=== PATIENT | male | born 1965 | race Two or more races ===

== ENCOUNTER 2021-04-16 16:22 | Inpatient (IN) | payer BC ==
[~2021-04-16] VITALS: Ht 162.6 cm; Wt 72.0 kg
[2021-04-16] MEDS ORDERED: aspirin 325mg tablet PO ONE (17:35)
[2021-04-16 18:10] LABS: HEMATOCRIT 43.4 % (42.0-52.0); HEMOGLOBIN 14.1 g/dl (14.0-17.9); LYMPHOCYTES % (AUTO) 30.7 % (21-51); MEAN CORPUSCULAR HEMOGLOBIN 24.3 PG (27.0-31.0); MEAN CORPUSCULAR HGB CONC 32.5 g/dL (33.0-36.5); MEAN CORPUSCULAR VOLUME 74.7 FL (78-98); MEAN PLATELET VOLUME 8.7 FL (7.4-10.4); MONOCYTES % (AUTO) 12.7 % (2-12); NEUTROPHILS % (AUTO) 49.1 % (42-75); PLATELET COUNT 224 X10'3 (140-440); RED BLOOD COUNT 5.81 X10'6 (4.70-6.10); RED CELL DISTRIBUTION WIDTH 13.7 % (11.5-14.5); WHITE BLOOD COUNT 8.3 X10'3 (4.5-11.0)
[2021-04-16 18:11] LABS: BASOPHILS # (AUTO) 0.1 X10'3 (0-0.2); BASOPHILS % (AUTO) 1.2 % (0-1); EOSINOPHILS # (AUTO) 0.5 X10'3 (0-0.9); EOSINOPHILS % (AUTO) 6.3 % (0-6); LYMPHOCYTES # (AUTO) 2.5 X10'3 (1.1-4.8); MONOCYTES # (AUTO) 1.1 X10'3 (0-0.9); NEUTROPHILS # (AUTO) 4.1 X10'3 (1.8-7.7)
[2021-04-16 18:13] LABS: ALANINE AMINOTRANSFERASE 65 U/L (12-78); ALBUMIN 4.1 G/DL (3.4-5.0); ALKALINE PHOSPHATASE 76 IU/L (46-116); ANION GAP 8 (8-16); ASPARTATE AMINO TRANSFERASE 23 U/L (10-37); BILIRUBIN,TOTAL 0.6 MG/DL (0.1-1.0); BLOOD UREA NITROGEN 12 MG/DL (7-18); BUN/CREATININE RATIO 11.2 (5.4-32.0); CALCIUM 8.7 MG/DL (8.5-10.1); CHLORIDE 106 MMOL/L (99-107); CREATININE 1.07 MG/DL (0.60-1.10); GLUCOSE 103 MG/DL (70-104); POTASSIUM 3.6 MMOL/L (3.5-5.1); SODIUM 143 MMOL/L (135-145); TOTAL PROTEIN 8.2 G/DL (6.4-8.2); eGFR 72 ML/MIN
[2021-04-16] MEDS ORDERED: LISI-790 PO (19:00)
[2021-04-16] MEDS ORDERED: CHLO25TA10 PO (19:00)
[2021-04-16] MEDS ORDERED: ATOR10TA70 PO (19:00)
[2021-04-16 20:31] LABS: CLARITY,URINE CLEAR (Clear); COLOR,URINE YELLOW (Yellow); GLUCOSE, URINE NEGATIVE (Neg); KETONES,URINE NEGATIVE (Neg); LEUKOCYTE ESTERASE ,URINE NEGATIVE (Neg); NITRITES, URINE NEGATIVE (Neg); OCCULT BLOOD,URINE NEGATIVE (Neg); PROTEIN,URINE NEGATIVE (Neg); UROBILINOGEN,URINE 0.2 E.U/dL (0.2-1.0)
[2021-04-16 20:33] LABS: UA COLLECTION TYPE CLN CATCH MIDSTREAM
[2021-04-16 20:50] LABS: URINE AMPHETAMINE SCREEN NEGATIVE (Neg); URINE BARBITUATE SCREEN NEGATIVE (Neg); URINE BENZODIAZEPINES SCREEN NEGATIVE (Neg); URINE CANNABINOID SCREEN NEGATIVE (Neg); URINE COCAINE SCREEN NEGATIVE (Neg); URINE METHADONE SCREEN NEGATIVE (Neg); URINE OPIATE SCREEN NEGATIVE (Neg); URINE PHENCYCLIDINE SCREEN NEGATIVE (Neg)
[2021-04-16] MEDS ORDERED: bisacodyl 10mg suppository rectal RC PRN (20:55)
[2021-04-16] MEDS ORDERED: HYDROcodone/acetaminophen 5mg/325mg tablet PO PRN (20:55)
[2021-04-16] MEDS ORDERED: HYDROcodone/acetaminophen 10/325mg tab PO PRN (20:55)
[2021-04-16] MEDS ORDERED: acetaminophen 650mg rectal suppository RC PRN (20:55)
[2021-04-16] MEDS ORDERED: acetaminophen 325mg tablet PO PRN ×2 (20:55)
[2021-04-16] MEDS ORDERED: magnesium hydroxide 30ml (MOM) UD suspension PO PRN (20:55)
[2021-04-16] MEDS ORDERED: diphenhydrAMINE 25mg capsule PO PRN (20:55)
[2021-04-16] MEDS ORDERED: ondansetron/PF 4mg/2ml inj IV PRN (20:55)
[2021-04-16] MEDS ORDERED: ondansetron 4mg rapidly disintigrating tab PO PRN (20:55)
[2021-04-16] MEDS ORDERED: normal saline 1000ml 1,000 ML IV SCH (20:55)
[2021-04-16] MEDS ORDERED: morphine 2 MG/ML inj. syringe IV PRN ×2 (20:55)
[2021-04-16] MEDS ORDERED: diphenhydrAMINE 50 mg/ml inj IV PRN (20:55)
[2021-04-16] MEDS ORDERED: mag hydrox/Alum hydrox/simeth 30ml oral suspension PO PRN (20:55)
[2021-04-16] MEDS ORDERED: temazepam 15mg capsule PO PRN (21:00)
[2021-04-16] MEDS ORDERED: iohexol 350MG/ML 100ml bottle IV ONE (21:08)
[2021-04-16 21:35] LABS: PARTIAL THROMBOPLASTIN TIME 26 SECONDS (22-32)
[2021-04-16 21:57] LABS: D-DIMER < 0.19 MG/L FEU (0-0.50)
[2021-04-16 22:24] LABS: HEMOGLOBIN A1C 6.6 % (4.5-6.2)
[2021-04-16 22:46] LABS: CREATINE KINASE 97 U/L (39-308); LIPASE 165 U/L (73-393); MAGNESIUM 2.3 MG/DL (1.5-2.4); PHOSPHORUS 4.2 MG/DL (2.3-4.5)
[2021-04-17 01:04] LABS: BASOPHILS # (AUTO) 0.1 X10'3 (0-0.2); EOSINOPHILS # (AUTO) 0.6 X10'3 (0-0.9); MEAN CORPUSCULAR HGB CONC 32.6 g/dL (33.0-36.5); MONOCYTES # (AUTO) 0.7 X10'3 (0-0.9)
[2021-04-17 01:06] LABS: BASOPHILS % (AUTO) 1.4 % (0-1); EOSINOPHILS % (AUTO) 6.4 % (0-6); HEMATOCRIT 44.3 % (42.0-52.0); HEMOGLOBIN 14.4 g/dl (14.0-17.9); LYMPHOCYTES # (AUTO) 2.6 X10'3 (1.1-4.8); LYMPHOCYTES % (AUTO) 28.8 % (21-51); MEAN CORPUSCULAR HEMOGLOBIN 24.3 PG (27.0-31.0); MEAN CORPUSCULAR VOLUME 74.7 FL (78-98); MEAN PLATELET VOLUME 8.3 FL (7.4-10.4); MONOCYTES % (AUTO) 7.5 % (2-12); NEUTROPHILS # (AUTO) 5.1 X10'3 (1.8-7.7); NEUTROPHILS % (AUTO) 55.9 % (42-75); PLATELET COUNT 223 X10'3 (140-440); RED BLOOD COUNT 5.93 X10'6 (4.70-6.10); RED CELL DISTRIBUTION WIDTH 14.1 % (11.5-14.5); WHITE BLOOD COUNT 9.2 X10'3 (4.5-11.0)
[2021-04-17 01:18] LABS: ALANINE AMINOTRANSFERASE 64 U/L (12-78); ALBUMIN 4.3 G/DL (3.4-5.0); ALBUMIN/GLOBULIN RATIO 1.1 (1.1-1.5); ALKALINE PHOSPHATASE 84 IU/L (46-116); ANION GAP 8 (8-16); ASPARTATE AMINO TRANSFERASE 21 U/L (10-37); BILIRUBIN,TOTAL 0.7 MG/DL (0.1-1.0); BLOOD UREA NITROGEN 11 MG/DL (7-18); BUN/CREATININE RATIO 9.6 (5.4-32.0); CALCIUM 8.7 MG/DL (8.5-10.1); CHLORIDE 105 MMOL/L (99-107); CREATININE 1.15 MG/DL (0.60-1.10); GLUCOSE 135 MG/DL (70-104); POTASSIUM 3.7 MMOL/L (3.5-5.1); SODIUM 144 MMOL/L (135-145); TOTAL CARBON DIOXIDE 30.9 MMOL/L (24-32); TOTAL PROTEIN 8.3 G/DL (6.4-8.2); eGFR 66 ML/MIN
[2021-04-17 01:21] LABS: CHOL/HDL RATIO 3.4 (0.00-4.99); CHOLESTEROL 134 MG/DL (0-200); HDL CHOLESTEROL 39 MG/DL (35-60); LDL CHOLESTEROL 74 MG/DL (50-100); TRIGLYCERIDES 76 MG/DL (20-135)
--- NOTE | 2021-04-17 03:07 | NUR ---
Patient provided with MRI screening form and warm blanket per request. Resting in stretcher, even and unlabored respirations. NO further requests at this time.
--- NOTE | 2021-04-17 05:59 | NUR ---
Patient ambulatory to and from bathroom with steady gait. Provided with MRI screening form to complete.
--- NOTE | 2021-04-17 06:42 | NUR ---
received report from marilee pgae from ed
[2021-04-17] MEDS ORDERED: pantoprazole 40mg Tablet.DR PO SCH (07:30)
[2021-04-17] MEDS ORDERED: aspirin 325mg tablet, delayed-release (Ecotrin) PO SCH (08:00)
[2021-04-17] MEDS ORDERED: docusate sod 100mg capsule PO SCH (08:00)
[2021-04-17] MEDS ORDERED: atorvastatin 10mg tablet PO SCH (08:00)
[2021-04-17 09:08] VITALS: BP 112/85
[2021-04-17 10:21] VITALS: BP 141/95
--- NOTE | 2021-04-17 14:03 | NUR ---
PT D/C WITH INSTRUCTIONS, UNDERSTANDING OF INSTRUCTIONS AND W/ALL BELONGINGS WALKING DOWN TO PRIVATE VEHICLE TO GO HOME AND F/U W/PCP
== END 2021-04-17 14:15 | disposition home or self-care (01) | DRG 948 ==
LOC: ER 16:23 → ED HOLD 20:59 → ORTHO 4S 04-17 07:00
PROVIDERS: ADMIT Family Medicine; ATTEND Internal Medicine
PROC: B3251ZZ Computerized Tomography (CT Scan) of Bilateral Common Carotid Arteries using Low Osmolar Contrast (ICD-10-PCS; principal; 2021-04-16)
PROC: B32G1ZZ Computerized Tomography (CT Scan) of Bilateral Vertebral Arteries using Low Osmolar Contrast (ICD-10-PCS; 2021-04-16)
PROC: B32R1ZZ Computerized Tomography (CT Scan) of Intracranial Arteries using Low Osmolar Contrast (ICD-10-PCS; 2021-04-16)
PROC: B3281ZZ Computerized Tomography (CT Scan) of Bilateral Internal Carotid Arteries using Low Osmolar Contrast (ICD-10-PCS; 2021-04-16)
DX: R53.1 Weakness (principal); E78.5 Hyperlipidemia, unspecified; R73.9 Hyperglycemia, unspecified; I10 Essential (primary) hypertension; R29.700 NIHSS score 0; Z79.899 Other long term (current) drug therapy; Z86.73 Personal history of transient ischemic attack (TIA), and cerebral infarction without residual deficits
CPT/HCPCS: 36415; 70450; 70496; 70498; 70544; 70551; 71045; 80053; 80061; 80305; 81003; 82550; 83036; 83690; 83735; 83880; 84100; 84443; 84484; 85025; 85379; 85610; 85730; 86885; 86900; 86901; 87081; 92508; 92616; 93306; 97161; 97530; 99285; G0378; J7030; Q9967